=== PATIENT | male | born 1960 | race Caucasian/White ===

== ENCOUNTER 2016-10-14 02:25 | Emergency (ER) | payer OTHER ==
[~2016-10-14] VITALS: Ht 167.6 cm; Wt 100.0 kg
[~2016-10-14 02:25] MED LIST: AMLO5TAB2 PO; BENA20TA PO; CLON0.2T PO; CYAN50TA2 PO; DISU250T5 PO; GABA-502 PO; HYDR-3797 PO; MULT-1018 PO; POTA10CA42 PO; QUET50TA55 PO; THIA100T64 PO
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
[2016-10-14 02:54] VITALS: BP 160/94; PULSE 104; RESP 20; O2SAT 99
[2016-10-14 04:22] VITALS: BP 148/88; PULSE 100; RESP 16; O2SAT 99
[2016-10-14] MEDS ORDERED: Haloperidol 5 mg/mL Inj IM PRN (05:05)
[2016-10-14 09:02] VITALS: BP 137/75; PULSE 110; O2SAT 97
[2016-10-14] MEDS ORDERED: 0.9% Sodium Chloride 1,000 ML IV SCH (10:15)
[2016-10-14 11:07] VITALS: BP 134/67; PULSE 120; O2SAT 94
[2016-10-14 11:28] VITALS: BP 134/67; PULSE 120; RESP 16; O2SAT 94
== END 2016-10-14 11:30 | disposition home or self-care (01) ==
LOC: SED 02:25
DX: F31.9 Bipolar disorder, unspecified (principal); F10.120 Alcohol abuse with intoxication, uncomplicated; R45.851 Suicidal ideations; I10 Essential (primary) hypertension; Z88.1 Allergy status to other antibiotic agents
CPT/HCPCS: 82075; 96372; 99284; J1630; J2060

== ENCOUNTER 2016-12-21 10:49 | Emergency (ER) | payer OTHER ==
[~2016-12-21] VITALS: Ht 175.3 cm; Wt 88.2 kg
[2016-12-21 10:50] VITALS: BP 171/110; PULSE 122; RESP 14; O2SAT 100
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
[2016-12-21 12:42] VITALS: BP 138/67; PULSE 102; RESP 16; O2SAT 100
[2016-12-21 12:46] LABS: BASOPHILS % (AUTO) 0.7 % (0-3); EOSINOPHILS % (AUTO) 0.3 % (0-5); MONOCYTES % (AUTO) 4.6 % (4-12); Mean Corpuscular Hemoglobin 31.6 pg (27.0-35.0); Mean Corpuscular Volume 94.2 fL (81-100); NEUTROPHILS % (AUTO) 63.7 % (40-74); Platelet Count 190 bil/L (150-400)
[2016-12-22] MEDS ORDERED: LORA-303 PO (10:19)
== END 2016-12-21 12:40 | disposition home or self-care (01) ==
LOC: SED 10:49
DX: F10.120 Alcohol abuse with intoxication, uncomplicated (principal); F33.2 Major depressive disorder, recurrent severe without psychotic features; R45.851 Suicidal ideations; F31.9 Bipolar disorder, unspecified; I10 Essential (primary) hypertension; Z88.0 Allergy status to penicillin

== ENCOUNTER 2016-12-22 00:49 | Emergency (ER) | payer OTHER ==
[~2016-12-22] VITALS: Ht 167.6 cm; Wt 88.2 kg
[2016-12-22 00:53] VITALS: BP 160/101; PULSE 127; RESP 18; O2SAT 95
[2016-12-22] MEDS ORDERED: LORA-303 PO (10:19)
== END 2016-12-22 02:55 | disposition left against medical advice (07) ==
LOC: SED 00:49
DX: R45.851 Suicidal ideations (principal); F10.120 Alcohol abuse with intoxication, uncomplicated; Z53.21 Procedure and treatment not carried out due to patient leaving prior to being seen by health care provider

== ENCOUNTER 2016-12-22 06:26 | Emergency (ER) | payer OTHER ==
[~2016-12-22] VITALS: Ht 167.6 cm; Wt 8.6 kg
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
[2016-12-22] MEDS ORDERED: Pantoprazole 4 mg/mL 10 mL Inj IVPUSH ONE (06:40)
[2016-12-22] MEDS ORDERED: Ondansetron 2 mg/mL 2 mL Inj IVPUSH ONE (06:40)
[2016-12-22] MEDS ORDERED: Thiamine Inj 100 MG, Folic Acid Inj 1 MG, Magnesium Sulfate 50% Inj 2 GM, Multivitamins... IV ONE ×5 (06:40)
[2016-12-22 06:54] VITALS: BP 161/108; PULSE 110; RESP 16; O2SAT 97
[2016-12-22 08:10] LABS: BASOPHILS % (AUTO) 0.1 % (0-3); EOSINOPHILS % (AUTO) 0.1 % (0-5); MONOCYTES % (AUTO) 4.8 % (4-12); Mean Corpuscular Hemoglobin 31.2 pg (27.0-35.0); Mean Corpuscular Volume 93.1 fL (81-100); NEUTROPHILS % (AUTO) 78.1 % (40-74); Platelet Count 195 bil/L (150-400)
[2016-12-22 08:27] LABS: INR 1.03 ratio
[2016-12-22 08:40] LABS: TROPONIN T < 0.010 ug/L (0.0-0.011)
[2016-12-22 08:44] LABS: Phosphorus 3.3 mg/dL (2.5-4.9)
[2016-12-22 09:03] LABS: Lipase 22 U/L (13-60)
[2016-12-22] MEDS ORDERED: LidocaineVisc 2%:Antacid 1:1 10 mL Syringe PO ONE (10:15)
[2016-12-22] MEDS ORDERED: LORA-303 PO (10:19)
[2016-12-22 11:38] VITALS: BP 157/86; PULSE 114; RESP 18; O2SAT 95
== END 2016-12-22 11:41 | disposition home or self-care (01) ==
LOC: EDBD 06:26 → EDUNIT# 06:26 → SED 06:26
DX: F10.220 Alcohol dependence with intoxication, uncomplicated (principal); R07.89 Other chest pain; R74.0 Nonspecific elevation of levels of transaminase and lactic acid dehydrogenase [LDH]; I10 Essential (primary) hypertension; Z88.1 Allergy status to other antibiotic agents
CPT/HCPCS: 36415; 80053; 81002; 82075; 82607; 83690; 84100; 84484; 85025; 85610; 85730; 93005; 96365; 96366; 96375; 99285; G0480; J1885; J2060; J2405; J3475; J7030

== ENCOUNTER 2017-02-06 23:03 | Emergency (ER) | payer OTHER ==
[~2017-02-06] VITALS: Ht 157.5 cm; Wt 100.0 kg
[~2017-02-06 23:03] MED LIST changes: +LORA-303 PO
[2017-02-06 23:13] VITALS: BP 155/90; PULSE 70; RESP 18; O2SAT 98
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
[2017-02-07 02:48] VITALS: BP 141/87; PULSE 101; RESP 18; O2SAT 94
== END 2017-02-07 02:43 | disposition home or self-care (01) ==
LOC: SED 23:03
DX: F10.120 Alcohol abuse with intoxication, uncomplicated (principal); F43.21 Adjustment disorder with depressed mood; R45.851 Suicidal ideations; I10 Essential (primary) hypertension; F43.10 Post-traumatic stress disorder, unspecified; Z79.899 Other long term (current) drug therapy; Z88.1 Allergy status to other antibiotic agents

== ENCOUNTER 2017-02-10 08:10 | Inpatient (IN) | payer OTHER ==
[2017-02-10] VITALS (9 sets, daily range): BP systolic 136–154; BP diastolic 77–90; PULSE 104–120; RESP 16–18; O2SAT 90–95
[~2017-02-10] VITALS: Ht 157.5 cm; Wt 91.5 kg
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
--- NOTE | 2017-02-10 10:07 | DRSVH ---
PROCEDURE: X-RAY CHEST ONE VIEW, PORTABLE ([id number]) INDICATIONS: trauma TECHNIQUE: One view of the chest was acquired. COMPARISON: [facility], CR, XR CHEST 1VW (PORTABLE), 08/31/2016, 15:05. FINDINGS: Surgical changes and devices: None. Lungs and pleura: No pleural effusions or pneumothorax. Lungs are clear. Mild elevation of the rig ht sacrum similar to prior studies. Mediastinum: Mediastinal contours appear normal. Heart size is normal. There may be mild aortic at herosclerosis. Bones and chest wall: No suspicious bony lesions. Overlying soft tissues appear unremarkable. IMPRESSION: Negative chest. No acute cardiopulmonary process is evident. Dictated by: Wyatt Beaulieu M.D. on 02/10/2017 at 9:05 Approved by: Wyatt Beaulieu M.D. on 02/10/2017 at 9:05
[2017-02-10] MEDS ORDERED: 0.9% Sodium Chloride 1,000 ML IV ONE (14:46)
[2017-02-10] MEDS ORDERED: Thiamine Inj 100 MG, Folic Acid Inj 1 MG, Magnesium Sulfate 50% Inj 2 GM, Multivitamins... IV ONE ×10 (14:50→16:05)
[2017-02-10 15:13] LABS: BASOPHILS % (AUTO) 0.7 % (0-3); EOSINOPHILS % (AUTO) 0.3 % (0-5); MONOCYTES % (AUTO) 4.4 % (4-12); Mean Corpuscular Hemoglobin 30.8 pg (27.0-35.0); Mean Corpuscular Volume 90.5 fL (81-100); NEUTROPHILS % (AUTO) 65.7 % (40-74)
[2017-02-10 15:29] LABS: Platelet Count 78 bil/L (150-400)
[2017-02-10] MEDS ORDERED: KCl 40 mEq/D5W 500 mL 40 MEQ in IV Premix 1 EACH IV ONE (15:30)
--- NOTE | 2017-02-10 16:07 | PCM.HPMED ---
Subjective Date of Service February 10, 2017 Primary Provider: Admitting Physician: Primary Care Physician[facility] Attending Physician: Chief Complaint: Alcohol intoxication History of Present Illness: 57-year-old male with chronic alcohol abuse, multiple emergency visits in the past, history of ETOH withdrawal seizures, HTN, PTSD p/w suicidal ideation in intoxicated state. It's unclear how EMS was activated but it was reported that he had a plan to hang himself per EMS. pt stated that he is not drinking everyday, rather had binge drinking, for past 2days, he drank 1.5gallons of rum. stated that last drinks was Mar, however, from EMR, this already fifth visit to the hospital since 2017. pt visited either with suicidal ideation being intoxicated. pt didn't recall any incidence triggered him drink etoh. but stated that he is agoraphobic, had multiple suicidal attempt in the past, would like to attempt suicide if no one is around him. Since pt came to ED, noted to be intoxicated, CIWA13, VS [id number], [id number], 94- 95%on RA, pt received ativan 2mg, labs showed metabolic acidosis, hypokalemia, mild transaminitis, thrombocytopenia. Given intoxicated state, high CIWA, pt was admitted to [facility] for observation given persistent withdrawal symptoms>7hrs after initial visit. Review of Systems: Pertinent positives as noted in history of present illness. All other systems were reviewed and are negative Allergies Coded Allergies: ampicillin (Verified Allergy, Severe, 02/06/17) Home Medications cannot recall any name of meds 2medicine for sleep at night 1 med for BP vitB12 PMH per previous records PMH Hypertension Depression Bipolar PTSD Surgical History Patient has not had surgery Family History strong hx of alcoholism, Mother, father, sisters and brothers: Alcoholism. Social History Hx Alcohol Use: Yes (binge drinker) Hx Substance Use: No Hx Tobacco Use: 2cig per day for four years Social History Hx Alcohol Use: Yes (currently intoxicated) Hx Substance Use: No (Denies) Hx Tobacco Use: No Smoking Status: Never Smoker Exam Vital Signs Vital Sign - Last Date Time Temp Pulse Resp B/P Pulse Ox O2 Delivery O2 Flow Rate FiO2 02/10/17 15:16 111 16 142/79 92 Room Air 02/10/17 13:52 37.3 Exam Intoxicated middle-aged male, comfortably laying down on the bed gross tremors on extended arms at rest bilaterally no JVD, MMM, no LAD RRR, nl s1, s2 no mrg CTAB, no w,c. small bruises on anterior chest S,ND,NT,normoactive BS+, no hepatomegaly warm, no edema, pulses 2/2 Lab and Diagnostics Result Diagram: 02/10/17 1450 02/10/17 1450 X-Rays, CTs and MRIs PROCEDURE: X-RAY CHEST ONE VIEW, PORTABLE ([id number]) INDICATIONS: trauma TECHNIQUE: One view of the chest was acquired. COMPARISON: [facility], CR, XR CHEST 1VW (PORTABLE), 08/31/2016, 15 :05. FINDINGS: Surgical changes and devices: None. Lungs and pleura: No pleural effusions or pneumothorax. Lungs are clear. Mild elevation of the right sacrum similar to prior studies. Mediastinum: Mediastinal contours appear normal. Heart size is normal. There may be mild aortic atherosclerosis. Bones and chest wall: No suspicious bony lesions. Overlying soft tissues appear unremarkable. IMPRESSION: Negative chest. No acute cardiopulmonary process is evident. Dictated by: Wyatt Beaulieu M.D. on 02/10/2017 at 9:05 Approved by: Wyatt Beaulieu M.D. on 02/10/2017 at 9:05 Assessment & Plan 57-year-old male with chronic alcohol abuse, multiple emergency visits in the past, history of ETOH withdrawal seizures, HTN, PTSD p/w suicidal ideation in intoxicated state. acute, active etoh intoxication/WD, POA, recurrent episode, CIWA13, ETOH level 170s at 2: 40pm. -seizure, fall, DT precaution, frequent neurochecks, q1-2h, restraints if necessary -CIWA protocol, avoid long acting benzo for now -diet as tolerate -banana bag 1liter now, followed by MVI, folate, thiamine -tachycardia likely related to withdrawal, if pt becomes hyptensive as well, will consider librium to prevent DTs. suicidal ideation, POA, multiple ?attempt in the past, -keep 1:1 -appreciate SW input prior to d/c, consider psychiatric consult mild transaminitis, POA, will check viral hep panel, likely alcoholic hepatitis , thrombocytopenia, POA, likely BM suppression with etoh abuse, trend for now chronic, stable HTN, will resume home med Dispo: Patient is admitted under observation status with expectation that she will be discharged within 24-48 hours, diet:general dvt ppx:SCD Full Code Time spent 35min Trav Grande MD February 10, 2017 15:54
--- NOTE | 2017-02-10 17:56 | NUR ---
ADMIT Report received from Madeline Villalpando RN in ED. Pt brought up to unit at 1645 via gurney. Pt able to transfer to bed on foot but reports feeling weak and did not want to stand for weight. Admission interventions completed, MED rec to be followed up at later time. Pt oriented to unit, room, and call light. Plan on board, pt instructed on plan of care. Initial CIWA on floor is 12. Pt declines medication at this time and has fallen asleep. Suicide score is 21, staying with pt until sitter arrives. No harm contract printed out, pt said he is willing to sign. Seizure pads in place, fall risk sign up, pt resting/sleeping in bed.
[2017-02-10] MEDS: Ondansetron 2 mg/mL 2 mL Inj IVPUSH PRN (20:17)
--- NOTE | 2017-02-10 22:07 | NUR ---
Mentation Patient has been alert and oriented, conversational with staff. 1:1 companionship for active suicidal ideation. CIWA scores have been 12,11,16, two doses of Valium given so far this shift. CPOx in place and telemetry connected. Patient reports that he has done enough in his life and is ready for it to be over- active listening in place. Patient has currently fallen asleep after second Valium dose. Continual monitoring in place.
[2017-02-11] VITALS (8 sets, daily range): BP systolic 131–157; BP diastolic 77–94; PULSE 83–115; RESP 2–18; O2SAT 94–98
[2017-02-11] MEDS: Ondansetron 2 mg/mL 2 mL Inj IVPUSH PRN ×3 (00:11→21:42)
--- NOTE | 2017-02-11 01:07 | NUR ---
Transfer to [facility] Patient transferred to room 2026 at 0100, changing status to PCC. Patient's CIWA scores have been increasing with Diazepam being administered, last score was 23. Phone report given to Genesis Jasso RN, prior to transferring. 1:1 sitter will remain with patient. Vital signs stable at time of transfer. No personal belongings with admit.
--- NOTE | 2017-02-11 01:30 | NUR ---
Transfer to [facility] CIWA score is 3. The patient states that he feels overall "calm" and would "like to get some sleep" Oriented to call light. Tolerates ice chips. Sz pads in place. 1:1 sitter for suicide ideation. Pt does not voice any suicide thoughts at this time. WIll cont to monitor
[2017-02-11 04:11] LABS: BASOPHILS % (AUTO) 0.3 % (0-3); EOSINOPHILS % (AUTO) 0.8 % (0-5); MONOCYTES % (AUTO) 5.3 % (4-12); Mean Corpuscular Volume 90.3 fL (81-100); NEUTROPHILS % (AUTO) 67.5 % (40-74)
[2017-02-11 04:30] LABS: Magnesium 1.9 mg/dL (1.6-2.6); Phosphorus 1.8 mg/dL (2.5-4.9)
[2017-02-11 04:31] LABS: Platelet Count 60 bil/L (150-400)
[2017-02-11 08:10] LABS: Hepatitis A Antibody IgM Negative (Negative); Hepatitis B Core Antibody IgM Negative (Negative)
[2017-02-11] MEDS ORDERED: IBUP200C PO ×2 (10:22→10:38)
[2017-02-11] MEDS ORDERED: POTA10TA38 PO ×2 (10:22→10:38)
[2017-02-11] MEDS: Thiamine Inj 100 MG in Dextrose 5% 50 ML IV SCH (10:34)
[2017-02-11] MEDS ORDERED: LORA1TAB PO (10:38)
[2017-02-11] MEDS ORDERED: HYDR-656 PO (10:38)
[2017-02-11] MEDS ORDERED: CLON0.2T PO (10:38)
[2017-02-11] MEDS ORDERED: AMLO5TAB2 PO (10:38)
[2017-02-11] MEDS ORDERED: MULT1CAP33 PO (10:38)
[2017-02-11] MEDS ORDERED: THIA100T64 PO (10:38)
[2017-02-11] MEDS ORDERED: DISU250T5 PO (10:38)
[2017-02-11] MEDS ORDERED: BENA20TA PO (10:38)
[2017-02-11] MEDS ORDERED: CYAN50TA2 PO (10:38)
--- NOTE | 2017-02-11 10:58 | NUR ---
Social Work Note: Screen Note Data& Assessment: EMR reviewed. Miguel Coelho is a 57 year old male admitted on 02/10/2017 for alcohol withdrawal. Pt has [employer] insurance coverage and goes to the [facility] for primary care. Pt has 1:1 sitter at this time due to suicidal statements made when pt was in the ED. Pt CIWA this morning was 10. SW to follow up with pt regarding CD assessment and assess for safety. KATHI received phone call from Curve Saw Operator Alice from [facility] , she follows pt in the community. Alice informed SW that pt is open with outpt mental health and CD services through the [place]. Pt has upcoming appointments including group sessions for an addiction group and a coping skills group. Pt next group session is scheduled for Thursday02/16/2017 at 10:00am and Thursday02/17/2017 at 11:00am. Alice explained pt attends these sessions consistently. Pt has no showed to multiple individual counseling sessions, but Alice is able to help pt reconnect with individual sessions if he chooses to reengage with those services. KATHI Jenkins ([phone]) from the [place] would like to be updated on pt status and on his final DC plan. SW to continue to follow. Plan: SW to follow up with pt regarding CD assessment and assess for safety. Pt to update pt [place] KATHI Jenkins ([phone]) on pt status and on his final DC plan.Pt next group session is scheduled for Thursday02/16/2017 at 10:00am and Thursday02/17/2017 at 11:00am. SW to continue to follow. MAYELIN Stuart
--- NOTE | 2017-02-11 13:33 | PCM.PNMED ---
Subjective Date of Service February 11, 2017 Subjective Mr Coelho states he is feeling better than yesterday, but still very weak and aching all over. He states he stays sober for around 60 days, going to AA meetings, therapy at the [facility], going to orth[facility], and then his frustrations with his exwife not allowing him to see his daughter tend to overwhelm him and he plans to drink again to still the pain and anxiety. Exam Vital Signs Vital Sign - Last Date Time Temp Pulse Resp B/P Pulse Ox O2 Delivery O2 Flow Rate FiO2 02/11/17 12:15 37.0 105 16 141/84 96 Nasal Cannula 2.00 Intake and Output 02/10/17 02/10/17 02/11/17 Cumulative From/Thru 15:00 23:00 07:00 02/10/17 15:58 - 02/11/17 05:54 Intake Total 2250 ml 1500 ml 3750 ml Output Total 2225 ml 2225 ml Balance 2250 ml -725 ml 1525 ml Intake Oral 1500 ml 1500 ml IV Total 2250 ml 2250 ml Output Urine Total 1925 ml 1925 ml Emesis 300 ml 300 ml Exam General: Alert, Oriented X3, Cooperative, No Acute Distress Head: Normocephalic, atraumatic. External ears normal. Eyes: PERRLA, EOMI. Anicteric sclerae. Mouth: Mouth Normal, Mucous Membranes Moist/[place] Neck: Neck supple with full range of motion. Chest & Lungs: Clear to auscultation bilaterally with no crackles, wheezes, or rhonchi. Cardiovascular: Regular Rate/Rhythm, Normal S1, Normal S2, No Murmurs/Rubs/ Gallops Abdomen: Non-tender, Non-distended, No masses, Normoactive bowel tones, Soft Musculoskeletal: Normal Range of Motion Extremities: No cyanosis/clubbing/edema bilaterally Neurological: Grossly Neurologically Intact, Cranial Nerves 2-12 Intact, Normal Speech IVs and Medications IV Fluids Banana Bag 102mls/hr IV Medications Reviewed: Medications were reviewed in detail Lab and Diagnostics Result Diagram: 02/11/17 0400 02/11/17 0400 X-Rays, CTs and MRIs PROCEDURE: X-RAY CHEST ONE VIEW, PORTABLE ([id number]) INDICATIONS: trauma TECHNIQUE: One view of the chest was acquired. COMPARISON: [facility], CR, XR CHEST 1VW (PORTABLE), 08/31/2016, 15 :05. FINDINGS: Surgical changes and devices: None. Lungs and pleura: No pleural effusions or pneumothorax. Lungs are clear. Mild elevation of the right sacrum similar to prior studies. Mediastinum: Mediastinal contours appear normal. Heart size is normal. There may be mild aortic atherosclerosis. Bones and chest wall: No suspicious bony lesions. Overlying soft tissues appear unremarkable. IMPRESSION: Negative chest. No acute cardiopulmonary process is evident. Dictated by: Wyatt Beaulieu M.D. on 02/10/2017 at 9:05 Approved by: Wyatt Beaulieu M.D. on 02/10/2017 at 9:05 Assessment & Plan 57-year-old male with chronic alcohol abuse, multiple emergency visits in the past, history of ETOH withdrawal seizures, HTN, PTSD p/w suicidal ideation in intoxicated state. acute, active 1. EtOH intoxication/WD, POA, recurrent episode, CIWA10 this morning, 23 highest overnight, -seizure, fall, DT precaution, frequent neurochecks, q1-2h, restraints if necessary -CIWA protocol, valium on board now -diet as tolerate -banana bag 1liter now, followed by MVI, folate, thiamine -tachycardia likely related to withdrawal, if pt becomes hyptensive as well, will consider librium to prevent DTs. - CBC and CMP in morning 2. suicidal ideation, POA, has attempted in the past, -keep 1:1 -appreciate SW input prior to d/c, consider psychiatric consult 3. mild transaminitis, POA, will check viral hep panel, likely alcoholic hepatitis, 4. thrombocytopenia, POA, likely BM suppression with etoh abuse, trend for now 5. Hypokalemia, POA, likely secondary to vomiting with intoxication by EtOH - K/Mg replacement protocol chronic, stable HTN, will resume home med Dispo: Patient is now admitted under inpatient status with expectation of length of stay greater than two midnights, diet:general dvt ppx:SCD Full Code Pain Evaluation: Adequate Pain Control VTE Prophylaxis: Other (thrombocytopenic patient) Resuscitation Status: CPR: Attempt Resuscitation Attending Statement The patient was seen and examined together with Dr. Nash on 02/11/2017 and I agree with the history, exam and plan as outlined in the note above. . Omkar Nash DO February 11, 2017 13:33 Jack Lee MD February 12, 2017 07:34
[2017-02-11] MEDS: KCl 40 mEq/D5W 500 mL 40 MEQ in IV Premix 1 EACH IV ONE ×2 (14:42→14:50)
[2017-02-11] MEDS ORDERED: Potassium Chloride 20 mEq SR Tablet PO ONE (14:50)
--- NOTE | 2017-02-11 15:31 | NUR ---
spiritual care: pt request visit attempt; pt did not rouse to voice. will follow
--- NOTE | 2017-02-11 19:12 | NUR ---
CIWA/suicidal ideation Pt CIWA scores 4-10 through the day. High HR resolved after two 5mg dose of Valium. Pt suicidal score was 13, pt stating not having any plan on hurting himself while in hospital and agreed to sign a no harms contract. Q30min rounds done for pt safety. Pt resting calmly in bed through most of the day. Report given to oncoming RN
[2017-02-11] MEDS ORDERED: Potassium Chloride Oral 20 mEq SR Tab(K 3 - 3.7 & Creat < 2) PO ONE (21:35)
[2017-02-11] MEDS ORDERED: LORazepam 1 mg Tablet PO ONE (23:55)
[2017-02-12 02:39] LABS: Mean Corpuscular Hemoglobin 30.2 pg (27.0-35.0); Mean Corpuscular Volume 88.5 fL (81-100)
[2017-02-12 03:20] VITALS: BP 155/90; PULSE 97; RESP 18; O2SAT 97
[2017-02-12] MEDS ORDERED: Potassium Chloride Oral 20 mEq SR Tab(K 3 - 3.7 & Creat < 2) PO ONE (05:20)
--- NOTE | 2017-02-12 05:26 | NUR ---
CIWA/ K CIWA score low overnight. Pt a/ox3, compliant with care. PRN Tylenol given x1 for generalized body discomfort. Pt at one point did become slightly diaphoretic and restless, however was refusing IV Valium as it caused awful burning sensation when given on day shift. Discussed with Dr. Hayley MCNULTY ordered 1x dose 1mg PO Ativan, med given with good results- pt sleeping comfortable. Pt denies any current suicidal ideation. no harm contract signed. 1999 k 3.3, 40 meq PO given per protocol. rechecked this am 3.5- additional 40 meq ordered.
[2017-02-12 06:27] VITALS: PULSE 100
[2017-02-12 08:00] VITALS: PULSE 100
[2017-02-12 08:20] VITALS: BP 149/93; PULSE 105; RESP 18; O2SAT 92
[2017-02-12] MEDS: Thiamine Inj 100 MG in Dextrose 5% 50 ML IV SCH (08:30)
[2017-02-12 12:05] VITALS: BP 120/85; PULSE 100; RESP 16; O2SAT 92
--- NOTE | 2017-02-12 12:17 | PCM.DIMED ---
SaadOmkar Kwasi SARMIENTO 02/12/17 1216: Discharge Instructions Date of Service February 12, 2017 Dates of Hospitalization February 10, 2017 at 16:23 Discharge Diagnosis Discharge Diagnosis Alcohol dependence, alcohol withdrawal, thrombocytopenia secondary to alcohol dependence Medication Instructions Chlordiazepoxide 25 mg by mouth 3 times a day when necessary for withdrawal symptoms Disulfiram by mouth every morning Continue other home medications as before hospitalization Test Results Laboratory Tests Test 02/11/17 20:06 02/12/17 02:25 02/12/17 10:15 Potassium Level 3.3mEq/L (3.5-5.2) 3.5mEq/L (3.5-5.2) 3.6mEq/L (3.5-5.2) White Blood Count 4.4th/mm3 (3.8-10.1) Red Blood Count 3.81mil/mm3 (4.40-5.80) Hemoglobin 11.5g/dL (13.8-17.2) Hematocrit 33.7% (41.0-50.0) Mean Corpuscular Volume 88.5fL (81-100) Mean Corpuscular Hemoglobin 30.2pg (27.0-35.0) Mean Corpuscular Hemoglobin Concent 34.1% (32.0-37.0) Red Cell Distribution Width 13.0% (12.3-15.4) Platelet Count 57bil/L (150-400) Sodium Level 131mEq/L (134-144) Chloride Level 92mEq/L (97-108) Carbon Dioxide Level 23mmol/L (18-29) Blood Urea Nitrogen 5mg/dL (6-24) Creatinine 0.48mg/dL (0.76-1.27) Estimat Glomerular Filtration Rate 191mL/min (>59) Glucose Level 150mg/dL (60-99) Calcium Level 8.6mg/dL (8.5-10.1) Total Bilirubin 1.1mg/dL (0.0-1.2) Aspartate Amino Transf (AST/SGOT) 107U/L (0-50) Alanine Aminotransferase (ALT/SGPT) 38U/L (0-44) Alkaline Phosphatase 105U/L (25-150) Total Protein 6.4g/dL (6.4-8.4) Albumin 3.9g/dL (3.4-5.0) Diet Heart Healthy Activity No restrictions Call your provider Fever or Chills, Shortness of breath, Bleeding, Chest pain, Vomitting, Excessive diarrhea, Weakness (unilateral) Patient Instructions Take chlordiazepoxide 525 mg 3 times a day as needed for withdrawal symptoms Take disulfiram every morning to support daily sobriety Make the most of your excellent recovery support community! Follow-up plan [place] for prescriptions [facility] Provider[facility] Follow-up with PCP in: 1 week Jack Lee MD 02/12/17 1909: Discharge Instructions Attending's Statement The patient was seen and examined together with Dr. Nash on 02/12/2017 and I agree with the history, exam and plan as outlined in the note above. . Omkar Nash DO February 12, 2017 12:16 Jack Lee MD February 12, 2017 19:09
[2017-02-12] MEDS ORDERED: DISU250T5 PO (12:19)
[2017-02-12] MEDS ORDERED: CHLO25CA10 PO (12:19)
--- NOTE | 2017-02-12 13:34 | NUR ---
Social Work: Attempted MH Assessment/Discharge D: Pt discussed in am rounds with MD team. THERAPEUTIC ACTIVITIES SERVICES WORKER identified the need for a Mental Health evaluation, per H&P and MD progress notes. THERAPEUTIC ACTIVITIES SERVICES WORKER requested notification once pt was medically cleared so that eval could be completed. THERAPEUTIC ACTIVITIES SERVICES WORKER attempted to complete assessment prior to pt's discharge however pt had already been released. THERAPEUTIC ACTIVITIES SERVICES WORKER staffed pt's case with hospitalist Dr. Lee, who stated to THERAPEUTIC ACTIVITIES SERVICES WORKER that he had no concerns about pt's suicidal ideation and that he cleared the pt for discharge as he is well connected with resources in the community. Prior to discharge Pt requested from MD [facility] MD explained that his meds would likely be mailed to him and not available right away. pt confirms that he has this medication at home from a previous prescription that he can take until these arrive. MD provided THERAPEUTIC ACTIVITIES SERVICES WORKER/ACCOUNTING ASSISTANT with these scripts to be faxed. A: Pt who is I at baseline; MD identified need for social work intervention no longer necessary and pt's cleared by MD team for suicidal ideation. P: Pt who discharged home with outpatient followup for MH and CD counseling. Em Fry THERAPEUTIC ACTIVITIES SERVICES WORKER
--- NOTE | 2017-02-12 14:24 | NUR ---
[facility] and [facility]. Faxed to [place] [phone] ATTN: Team XAVI. Updated FIRST AID ATTENDANT
--- NOTE | 2017-02-12 15:16 | NUR ---
Discharge of patient Reviewed discharge instructions with patient. Patient verbalized understanding. Pt discharged via wheelchair, pt forgot instructions. Instructions will be sent to patient's home by [facility]. [facility] IV and telemetry previously discontinued. Pt left hospital by cab to home self care.
--- NOTE | 2017-02-12 18:12 | PCM.DC.MED ---
Discharge Summary Date of Service February 12, 2017 Dates of Hospitalization Date of Hospital Admission February 10, 2017 at 16:23 Date of Discharge: February 12, 2017 Providers: Admitting Physician: Trav Grande MD Primary Care Physician: [facility] Attending Physician: Trav Grande MD Diagnosis at Time of Discharge Diagnosis at Time of Discharge Alcohol dependence, alcohol withdrawal, thrombocytopenia secondary to alcohol dependence Procedures XRay, CTs & MRIs PROCEDURE: X-RAY CHEST IMPRESSION: Negative chest. No acute cardiopulmonary process is evident. ECG 12 Lead NSR rate of 98 Brief History 57-year-old male with chronic alcohol abuse, multiple emergency visits in the past, history of ETOH withdrawal seizures, HTN, PTSD p/w suicidal ideation in intoxicated state. It's unclear how EMS was activated but it was reported that he had a plan to hang himself per EMS. pt stated that he is not drinking everyday, rather had binge drinking, for past 2days, he drank 1.5gallons of rum. stated that last drinks was Mar, however, from EMR, this already fifth visit to the hospital since 2016. pt visited either with suicidal ideation being intoxicated. pt didn't recall any incidence triggered him drink etoh. but stated that he is agoraphobic, had multiple suicidal attempt in the past, would like to attempt suicide if no one is around him. Since pt came to ED, noted to be intoxicated, CIWA13, VS [id number], [id number], 94- 95%on RA, pt received ativan 2mg, labs showed metabolic acidosis, hypokalemia, mild transaminitis, thrombocytopenia. Given intoxicated state, high CIWA, pt was admitted to [facility] for observation given persistent withdrawal symptoms>7hrs after initial visit. Hospital Course 57-year-old male with chronic alcohol dependence, multiple emergency visits in the past, history of alcohol withdrawal seizures, hypertension, posttraumatic stress disorder p/w suicidal ideation in intoxicated state on admission. 1. Alcohol intoxication and withdrawal, present on admission. Recurrent episode , - CIWA10 this morning, 23 highest overnight the first night -seizure, fall, DT precaution, frequent neurochecks, q1-2h, restraints if necessary -CIWA protocol, valium and Ativan per protocol on board now -diet as tolerated -banana bag 2liter total, followed by MVI, folate, thiamine -tachycardia likely related to withdrawal, resolved with benzodiazepines - CBC and CMP daily 2. suicidal ideation, present on admission. Resolved -Once sober and further into with draw the patient denies any suicidal ideation -Kept 1:1 surveillance 3. mild transaminitis, present on admission. stable -Hepatitis viral panel negative 4. thrombocytopenia, present on admission. Stable -likely BM suppression with alcohol abuse 5. Hypokalemia, present on admission. Resolved -likely secondary to vomiting with intoxication by alcohol - K/Mg replacement protocol chronic, stable HTN, will resume home med Dispo: Patient was admitted under inpatient status with expectation of length of stay greater than two midnights, diet:general dvt ppx:SCD Full Code Exam Vital Signs (Last) Date Time Temp Pulse Resp B/P Pulse Ox O2 Delivery O2 Flow Rate FiO2 02/12/17 12:05 37.2 100 16 120/85 92 Room Air 02/12/17 03:20 2.00 Exam General: Alert, Oriented X3, Cooperative, No Acute Distress Head: Normocephalic, atraumatic. External ears normal. Eyes: PERRLA, EOMI. Anicteric sclerae. Mouth: Mouth Normal, Mucous Membranes Moist/[place] Neck: Neck supple with full range of motion. Chest & Lungs: Clear to auscultation bilaterally with no crackles, wheezes, or rhonchi. Cardiovascular: Regular Rate/Rhythm, Normal S1, Normal S2, No Murmurs/Rubs/ Gallops Abdomen: Non-tender, Non-distended, No masses, Normoactive bowel tones, Soft Musculoskeletal: Normal Range of Motion Extremities: No cyanosis/clubbing/edema bilaterally Neurological: Grossly Neurologically Intact, Cranial Nerves 2-12 Intact, Normal Speech Skin: Extensive bruising on patient's back and upper lateral arms Test 02/10/17 11:35 02/10/17 14:50 02/10/17 16:30 02/11/17 04:00 Urine Opiates Screen Negative Urine Methadone Screen Negative Urine Barbiturates Screen Negative Urine Amphetamines Screen Negative Urine Benzodiazepines Screen Negative Urine Cocaine Metabolite Screen Negative Urine Cannabinoids Screen Negative Hold Mera Top Tube Received (Received) Alcohols 272mg/dL (0-10) Hepatitis A IgM Antibody Negative (Negative) Hepatitis B Surface Antigen Negative (Negative) Hepatitis B Core IgM Antibody Negative (Negative) Hepatitis C Antibody <0.1s/co ratio (0.0-0.9) Hepatitis C Comment Comment (.) Neutrophils (%) (Auto) 67.5% (40-74) Lymphocytes (%) (Auto) 25.8% (14-46) Monocytes (%) (Auto) 5.3% (4-12) Eosinophils (%) (Auto) 0.8% (0-5) Basophils (%) (Auto) 0.3% (0-3) Phosphorus Level 1.8mg/dL (2.5-4.9) Magnesium Level 1.9mg/dL (1.6-2.6) Test 02/11/17 04:15 02/12/17 02:25 02/12/17 10:15 Hold Urine Received (Received) White Blood Count 4.4th/mm3 (3.8-10.1) Red Blood Count 3.81mil/mm3 (4.40-5.80) Hemoglobin 11.5g/dL (13.8-17.2) Hematocrit 33.7% (41.0-50.0) Mean Corpuscular Volume 88.5fL (81-100) Mean Corpuscular Hemoglobin 30.2pg (27.0-35.0) Mean Corpuscular Hemoglobin Concent 34.1% (32.0-37.0) Red Cell Distribution Width 13.0% (12.3-15.4) Platelet Count 57bil/L (150-400) Sodium Level 131mEq/L (134-144) Chloride Level 92mEq/L (97-108) Carbon Dioxide Level 23mmol/L (18-29) Blood Urea Nitrogen 5mg/dL (6-24) Creatinine 0.48mg/dL (0.76-1.27) Estimat Glomerular Filtration Rate 191mL/min (>59) Glucose Level 150mg/dL (60-99) Calcium Level 8.6mg/dL (8.5-10.1) Total Bilirubin 1.1mg/dL (0.0-1.2) Aspartate Amino Transf (AST/SGOT) 107U/L (0-50) Alanine Aminotransferase (ALT/SGPT) 38U/L (0-44) Alkaline Phosphatase 105U/L (25-150) Total Protein 6.4g/dL (6.4-8.4) Albumin 3.9g/dL (3.4-5.0) Potassium Level 3.6mEq/L (3.5-5.2) Discharge Medications Discharge Medications Amlodipine (Amlodipine) 5 Mg Tablet 5 MG PO DAILY (Reported) Benazepril (Benazepril) 20 Mg Tablet 20 MG PO DAILY (Reported) Clonidine (Clonidine) 0.2 Mg Tablet 0.2 MG PO HS (Reported) Cyanocobalamin (Vitamin B-12) (Vitamin B-12) 50 Mcg Tablet 50 MCG PO DAILY ( Reported) Disulfiram (Disulfiram) 250 Mg Tablet 250 MG PO DAILY Prescribed by: OMKAR NASH DO Multivitamin (Multivitamins) 1 Each Capsule 1 EACH PO DAILY (Reported) Potassium Chloride (Potassium Chloride) 10 Meq Tab.er.prt 10 MEQ PO HS (Reported ) TAKE WITH FOOD Thiamine Mononitrate (Vitamin B-1) 100 Mg Tablet 100 MG PO DAILY (Reported) As needed Chlordiazepoxide (Chlordiazepoxide) 25 Mg Capsule 25 MG PO TID PRN PRN For Anxiety Prescribed by: OMKAR NASH DO Ibuprofen (Ibuprofen) 200 Mg Capsule 400 MG PO BID PRN PRN For Pain (Reported) Lorazepam (Lorazepam) 1 Mg Tablet 1 MG PO TID PRN PRN For Anxiety (Reported) hydrOXYzine Hcl (HydrOXYzine Hcl) 25 Mg Tablet 25 MG PO BID PRN PRN Insomnia ( Reported) Additional med instructions Chlordiazepoxide 25 mg by mouth 3 times a day when necessary for withdrawal symptoms Disulfiram by mouth every morning Continue other home medications as before hospitalization Followup Plan Disposition: Home Follow-up plan [place] for prescriptions. Patient to continue with recovery program and therapy. Discharge Diet: Heart Healthy Discharge Activity: No restrictions Patient Instructions Take chlordiazepoxide 525 mg 3 times a day as needed for withdrawal symptoms Take disulfiram every morning to support daily sobriety Make the most of your excellent recovery support community! [facility] Follow-up with PCP in: 1 week Time spent Greater than 30 minutes was spent in preparation of discharge with greater than 50% of that time dedicated to patient counseling and coordination of care. . Attending Statement The patient was seen and examined together with Dr. Nash on 02/12/2017 and I agree with the history, exam and plan as outlined in the note above. . [facility] Omkar Nash DO February 12, 2017 18:12 Jack Lee MD February 12, 2017 19:10
== END 2017-02-12 13:30 | disposition home or self-care (01) | DRG 897 ==
LOC: SED 08:10 → MPC 16:23 → PCC 02-11 01:01
PROVIDERS: ADMIT Internal Medicine; ATTEND Internal Medicine
DX: F10.229 Alcohol dependence with intoxication, unspecified (principal); R45.851 Suicidal ideations; E87.2 Acidosis; F10.239 Alcohol dependence with withdrawal, unspecified; Y90.8 Blood alcohol level of 240 mg/100 ml or more; F17.200 Nicotine dependence, unspecified, uncomplicated; F31.9 Bipolar disorder, unspecified; I10 Essential (primary) hypertension; F43.10 Post-traumatic stress disorder, unspecified; E87.6 Hypokalemia; D69.6 Thrombocytopenia, unspecified

== ENCOUNTER 2017-03-05 17:24 | Emergency (ER) | payer OTHER ==
[~2017-03-05] VITALS: Ht 162.6 cm; Wt 69.0 kg
[~2017-03-05 17:24] MED LIST changes: +CHLO25CA10 PO; -GABA-502 PO; -HYDR-3797 PO; +HYDR-656 PO; +IBUP200C PO; -LORA-303 PO; +LORA1TAB PO; -MULT-1018 PO; +MULT1CAP33 PO; -POTA10CA42 PO; +POTA10TA38 PO; -QUET50TA55 PO
[2017-03-05 17:33] VITALS: BP 141/94; PULSE 120; RESP 16; O2SAT 95
[2017-03-05] MEDS ORDERED: Ondansetron 8 mg ODT Tablet ONE (17:39)
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
[2017-03-05] MEDS ORDERED: Multivitamin w/Vit K Inj 10 ML, Thiamine Inj 100 MG, Folic Acid Inj 1 MG, Magnesium Sul... IV ONE ×5 (17:49)
[2017-03-05 18:53] LABS: BASOPHILS % (AUTO) 1.8 % (0-3); EOSINOPHILS % (AUTO) 1.5 % (0-5); MONOCYTES % (AUTO) 4.6 % (4-12); Mean Corpuscular Volume 86.6 fL (81-100); NEUTROPHILS % (AUTO) 28.7 % (40-74); Platelet Count 246 bil/L (150-400)
[2017-03-05] MEDS ORDERED: Haloperidol 5 mg/mL Inj IVPUSH ONE ×2 (18:55→23:55)
[2017-03-05 19:17] LABS: INR 1.03 ratio
[2017-03-05 19:52] VITALS: BP 119/73; PULSE 114; RESP 20; O2SAT 96
[2017-03-05 21:41] VITALS: BP 139/75; PULSE 110; RESP 16; O2SAT 96
[2017-03-06 00:34] VITALS: BP 122/85; PULSE 97; RESP 16; O2SAT 98
[2017-03-06 01:26] VITALS: BP 121/69; PULSE 101; RESP 16; O2SAT 97
== END 2017-03-06 05:34 | disposition home or self-care (01) ==
LOC: SED 17:24
DX: F10.220 Alcohol dependence with intoxication, uncomplicated (principal); R45.851 Suicidal ideations; F41.9 Anxiety disorder, unspecified; Y90.8 Blood alcohol level of 240 mg/100 ml or more; F43.10 Post-traumatic stress disorder, unspecified; I10 Essential (primary) hypertension; F31.9 Bipolar disorder, unspecified; D69.6 Thrombocytopenia, unspecified; D70.9 Neutropenia, unspecified; Z91.5 Personal history of self-harm; Z88.0 Allergy status to penicillin
CPT/HCPCS: 36415; 80053; 81002; 82075; 82607; 83735; 84443; 85025; 85610; 96365; 96366; 96375; 96376; 99285; G0480; J1630; J2060; J3475; J7030

== ENCOUNTER 2017-03-06 15:51 | Emergency (ER) | payer OTHER ==
[~2017-03-06] VITALS: Ht 167.6 cm; Wt 86.4 kg
[2017-03-06 16:10] VITALS: BP 144/88; PULSE 123; RESP 16; O2SAT 98
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
[2017-03-06] MEDS ORDERED: LORazepam 1 mg Tablet PO ONE ×2 (17:35→19:40)
[2017-03-06 20:13] VITALS: BP 141/87; PULSE 108; RESP 18; O2SAT 93
[2017-03-06 22:51] VITALS: BP 151/99; PULSE 103; RESP 18; O2SAT 95
== END 2017-03-06 22:52 | disposition home or self-care (01) ==
LOC: SED 15:51
DX: F10.120 Alcohol abuse with intoxication, uncomplicated (principal); R45.851 Suicidal ideations; F31.9 Bipolar disorder, unspecified; I10 Essential (primary) hypertension; Z88.1 Allergy status to other antibiotic agents

== ENCOUNTER 2017-04-23 04:41 | Emergency (ER) | payer OTHER ==
[~2017-04-23] VITALS: Ht 167.6 cm; Wt 81.8 kg
[2017-04-23 04:43] VITALS: BP 152/99; PULSE 120; RESP 22; O2SAT 97
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
[2017-04-23] MEDS ORDERED: Thiamine Inj 100 MG, Folic Acid Inj 1 MG, Magnesium Sulfate 50% Inj 2 GM, Multivitamins... IV ONE ×5 (04:50)
[2017-04-23] MEDS ORDERED: Ondansetron 2 mg/mL 2 mL Inj IVPUSH ONE (04:50)
[2017-04-23] MEDS ORDERED: 0.9% Sodium Chloride 1,000 ML IV ONE (04:50)
[2017-04-23 05:08] LABS: Mean Corpuscular Hemoglobin 31.1 pg (27.0-35.0); Mean Corpuscular Volume 90.2 fL (81-100)
[2017-04-23] MEDS ORDERED: Famotidine Inj 20 MG in IV Premix 1 EACH IV ONE (05:30)
[2017-04-23] MEDS ORDERED: POTA10TA12 PO (05:50)
[2017-04-23] MEDS ORDERED: ONDA8TAB10 PO (05:50)
[2017-04-23] MEDS ORDERED: ProchlorPERazine 5 mg/mL 2 mL Inj IV ONE (06:15)
[2017-04-23 06:47] VITALS: BP 168/92; PULSE 102; RESP 18; O2SAT 98
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
[2017-04-23 07:59] VITALS: BP 166/79; PULSE 101; RESP 16; O2SAT 97
== END 2017-04-23 08:00 | disposition home or self-care (01) ==
LOC: SED 04:41
DX: F10.20 Alcohol dependence, uncomplicated (principal); F31.9 Bipolar disorder, unspecified; E87.6 Hypokalemia; R45.851 Suicidal ideations; R11.2 Nausea with vomiting, unspecified; I10 Essential (primary) hypertension; F41.8 Other specified anxiety disorders; Z88.1 Allergy status to other antibiotic agents
CPT/HCPCS: 36415; 70450; 80053; 81002; 82075; 82948; 83690; 85027; 96365; 96368; 96375; 99285; J0780; J2405; J3475; J3490; J7030

== ENCOUNTER 2017-06-01 21:40 | Emergency (ER) | payer OTHER ==
[~2017-06-01] VITALS: Ht 170.2 cm; Wt 82.7 kg
[~2017-06-01 21:40] MED LIST changes: +ONDA8TAB10 PO; +POTA10TA12 PO; -POTA10TA38 PO; +POTA20TA16 PO; +[UNRECOGNIZED DRUG - REMARK]
[2017-06-01 21:46] VITALS: BP 147/94; PULSE 114; RESP 22; O2SAT 97
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
[2017-06-01] MEDS ORDERED: Multivitamin w/Vit K Inj 10 ML, Thiamine Inj 100 MG, Folic Acid Inj 1 MG, Magnesium Sul... IV ONE ×5 (22:10)
[2017-06-01 22:43] LABS: BASOPHILS % (AUTO) 1.6 % (0-3); EOSINOPHILS % (AUTO) 0.3 % (0-5); MONOCYTES % (AUTO) 3.7 % (4-12); Mean Corpuscular Hemoglobin 32.1 pg (27.0-35.0); NEUTROPHILS % (AUTO) 34.1 % (40-74); Platelet Count 101 bil/L (150-400)
[2017-06-01 22:59] LABS: INR 1.06 ratio
[2017-06-01 23:19] LABS: Magnesium 1.8 mg/dL (1.6-2.6)
[2017-06-02 00:49] VITALS: BP 160/105; PULSE 115; RESP 20; O2SAT 100
[2017-06-02 02:00] VITALS: BP 160/111; PULSE 115; RESP 22; O2SAT 96
== END 2017-06-02 02:01 | disposition home or self-care (01) ==
LOC: EDBD 21:40 → SED 21:40
DX: F10.120 Alcohol abuse with intoxication, uncomplicated (principal); F43.21 Adjustment disorder with depressed mood; I10 Essential (primary) hypertension; F43.10 Post-traumatic stress disorder, unspecified; Z87.891 Personal history of nicotine dependence; Z88.0 Allergy status to penicillin
CPT/HCPCS: 36415; 80053; 82075; 83735; 84443; 85025; 85610; 96365; 96375; 99284; J2060; J3475; J7030

== ENCOUNTER 2017-06-04 22:56 | Emergency (ER) | payer OTHER ==
[2017-06-04 23:19] VITALS: BP 133/79; PULSE 110; RESP 20; O2SAT 97
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
[2017-06-05 00:11] VITALS: BP 141/77; PULSE 105; RESP 16; O2SAT 96
[2017-06-05 02:40] VITALS: BP 143/89; PULSE 102; RESP 19; O2SAT 94
[2017-06-05 06:57] VITALS: BP 140/89; PULSE 99; RESP 17; O2SAT 93
[2017-06-05 07:34] VITALS: PULSE 74; RESP 14; O2SAT 98
== END 2017-06-05 07:35 | disposition home or self-care (01) ==
LOC: SED 22:56
DX: S00.33XA Contusion of nose, initial encounter (principal); S20.219A Contusion of unspecified front wall of thorax, initial encounter; X58.XXXA Exposure to other specified factors, initial encounter; Y93.89 Activity, other specified; Y92.89 Other specified places as the place of occurrence of the external cause; Y99.8 Other external cause status; F10.129 Alcohol abuse with intoxication, unspecified; I10 Essential (primary) hypertension; F41.0 Panic disorder [episodic paroxysmal anxiety]; F41.8 Other specified anxiety disorders; F31.9 Bipolar disorder, unspecified; F43.10 Post-traumatic stress disorder, unspecified; Z96.641 Presence of right artificial hip joint; Z98.890 Other specified postprocedural states; Z87.891 Personal history of nicotine dependence; Z88.1 Allergy status to other antibiotic agents

== ENCOUNTER 2017-06-07 08:45 | Emergency (ER) | payer OTHER ==
[~2017-06-07] VITALS: Ht 167.6 cm; Wt 85.9 kg
[2017-06-07 08:53] VITALS: BP 139/97; PULSE 89; RESP 20; O2SAT 97
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
[2017-06-07] MEDS ORDERED: TdaP Vaccine 0.5 mL Inj IM ONE (09:25)
[2017-06-07] MEDS ORDERED: Lidocaine-Epi-Tetracaine Solution 3 mL Syringe TOPICAL ONE (09:40)
[2017-06-07] MEDS ORDERED: Bacitracin Ointment Packet TOPICAL ONE (09:40)
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
--- NOTE | 2017-06-07 10:51 | DRSVH ---
PROCEDURE: X-RAY LEFT HAND, MINIMUM THREE VIEWS ([id number]) INDICATIONS: pain TECHNIQUE: 3 views of the hand(s) acquired. COMPARISON: None. FINDINGS: Bones: No fractures or dislocations. Carpal bones are normally aligned. No suspicious bony lesions . Degenerative changes greatest in the first CMC joint present to a lesser extent in the interphalan geal joints. Osteopenia. Soft tissues: No suspicious soft tissue calcifications. IMPRESSION: No acute fractures or dislocations. Dictated by: Peyman Aparicio M.D. on 06/07/2017 at 10:48 Approved by: Peyman Aparicio M.D. on 06/07/2017 at 10:49
--- NOTE | 2017-06-07 10:52 | DRSVH ---
PROCEDURE: X-RAY RIGHT HAND, MINIMUM THREE VIEWS ([id number]) INDICATIONS: pain TECHNIQUE: 3 views of the hand(s) acquired. COMPARISON: None. FINDINGS: Bones: No fractures or dislocations. Carpal bones are normally aligned. Degenerative changes in mul tiple interphalangeal joints. No suspicious bony lesions. Mild osteopenia. Soft tissues: No suspicious soft tissue calcifications. IMPRESSION: No acute fractures or dislocations. Dictated by: Peyman Aparicio M.D. on 06/07/2017 at 10:49 Approved by: Peyman Aparicio M.D. on 06/07/2017 at 10:50
[2017-06-07 11:34] LABS: BASOPHILS % (AUTO) 0.5 % (0-3); EOSINOPHILS % (AUTO) 1.1 % (0-5); MONOCYTES % (AUTO) 4.2 % (4-12); Mean Corpuscular Hemoglobin 32.2 pg (27.0-35.0); Mean Corpuscular Volume 95.2 fL (81-100); NEUTROPHILS % (AUTO) 20.8 % (40-74); Platelet Count 98 bil/L (150-400)
--- NOTE | 2017-06-07 12:06 | DRSVH ---
PROCEDURE: X-RAY CHEST ONE VIEW, PORTABLE ([id number]) INDICATIONS: CP TECHNIQUE: One view of the chest was acquired. COMPARISON: [facility], CR, XR CHEST 1VW (PORTABLE), 02/10/2017, 9:38. [facility], CR, XR CHEST 1VW (PORTABLE), 08/31/2016, 15:05. [facility], CR, XR CHEST 1VW (POR TABLE), 05/08/2016, 3:33. [facility], CR, XR CHEST 1VW (PORTABLE), 08/05/2015, 7:53. FINDINGS: Surgical changes and devices: None. Lungs and pleura: No pleural effusions or pneumothorax. Lungs are clear. Mediastinum: Mediastinal contours appear normal. Heart size is normal. Bones and chest wall: No suspicious bony lesions. Overlying soft tissues appear unremarkable. IMPRESSION: No radiographic evidence of acute cardiopulmonary pathology. Dictated by: Peyman Aparicio M.D. on 06/07/2017 at 12:03 Approved by: Peyman Aparicio M.D. on 06/07/2017 at 12:04
[2017-06-07 12:09] LABS: TROPONIN T 0.01 ug/L (0.0-0.011)
[2017-06-07 14:54] VITALS: BP 144/97; PULSE 92; RESP 20
[2017-06-07] MEDS ORDERED: LORazepam 2 mg Tablet PO ONE ×2 (15:40→21:00)
[2017-06-07] MEDS ORDERED: _LORazepam 2 MG Tablet PO SCH (17:15)
[2017-06-07 20:56] VITALS: BP 148/90; PULSE 105; RESP 16; O2SAT 95
== END 2017-06-07 23:32 | disposition home or self-care (01) ==
LOC: EDUNIT# 08:45 → SED 08:45 → EDBD 08:45 → SED 23:32
DX: S00.83XA Contusion of other part of head, initial encounter (principal); F10.229 Alcohol dependence with intoxication, unspecified; M79.641 Pain in right hand; M79.642 Pain in left hand; Y04.0XXA Assault by unarmed brawl or fight, initial encounter; Y93.89 Activity, other specified; Y99.8 Other external cause status; Y92.9 Unspecified place or not applicable; I10 Essential (primary) hypertension; E78.5 Hyperlipidemia, unspecified; Z96.641 Presence of right artificial hip joint; Z23 Encounter for immunization; Z87.891 Personal history of nicotine dependence; Z88.0 Allergy status to penicillin

== ENCOUNTER 2017-06-09 07:27 | Emergency (ER) | payer OTHER ==
[~2017-06-09] VITALS: Ht 167.6 cm; Wt 82.7 kg
[2017-06-09 07:29] VITALS: BP 138/91; PULSE 87; RESP 18; O2SAT 95
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
[2017-06-09 08:11] LABS: BASOPHILS % (AUTO) 0.5 % (0-3); EOSINOPHILS % (AUTO) 1.1 % (0-5); MONOCYTES % (AUTO) 7.1 % (4-12); Mean Corpuscular Hemoglobin 32.8 pg (27.0-35.0); Mean Corpuscular Volume 94.3 fL (81-100); Platelet Count 69 bil/L (150-400)
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
[2017-06-09 11:45] LABS: APPEARANCE,URINE CLEAR (CLEAR,HAZY); COLOR,URINE YELLOW (YELLOW)
[2017-06-09 11:46] LABS: OCCULT BLOOD,URINE TRACE (NEGATIVE); UROBILINOGEN,URINE NORMAL (NORMAL)
[2017-06-09 13:32] VITALS: BP 137/91; PULSE 119; RESP 14; O2SAT 90
[2017-06-09 17:15] VITALS: BP 145/88; PULSE 92; RESP 18; O2SAT 94
[2017-06-09 17:47] VITALS: BP 145/88; PULSE 92; RESP 18; O2SAT 94
== END 2017-06-09 17:48 | disposition home or self-care (01) ==
LOC: SED 07:27
DX: S02.2XXA Fracture of nasal bones, initial encounter for closed fracture (principal); S02.80XA Fracture of other specified skull and facial bones, unspecified side, initial encounter for closed fracture; F10.129 Alcohol abuse with intoxication, unspecified; W19.XXXA Unspecified fall, initial encounter; Y93.89 Activity, other specified; Y92.009 Unspecified place in unspecified non-institutional (private) residence as the place of occurrence of the external cause; Y99.8 Other external cause status; I10 Essential (primary) hypertension; F43.10 Post-traumatic stress disorder, unspecified; Z87.891 Personal history of nicotine dependence

== ENCOUNTER 2017-06-12 04:24 | Emergency (ER) | payer OTHER ==
[~2017-06-12] VITALS: Ht 167.6 cm; Wt 82.7 kg
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
[2017-06-12 04:23] VITALS: BP 155/104; PULSE 107; RESP 16; O2SAT 93
[2017-06-12] MEDS ORDERED: IBUP400T22 PO (06:10)
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
== END 2017-06-12 06:15 | disposition home or self-care (01) ==
LOC: SED 04:24
DX: S02.2XXA Fracture of nasal bones, initial encounter for closed fracture (principal); S62.316A Displaced fracture of base of fifth metacarpal bone, right hand, initial encounter for closed fracture; F10.10 Alcohol abuse, uncomplicated; Y04.0XXA Assault by unarmed brawl or fight, initial encounter; Y93.9 Activity, unspecified; Y92.9 Unspecified place or not applicable; Y99.8 Other external cause status; I10 Essential (primary) hypertension; F43.10 Post-traumatic stress disorder, unspecified; Z87.891 Personal history of nicotine dependence; Z88.1 Allergy status to other antibiotic agents
CPT/HCPCS: 70450; 70486; 72125; 73130; 81002; 82075; 96372; 99284; J1885

== ENCOUNTER 2017-06-14 00:42 | Emergency (ER) | payer OTHER ==
[~2017-06-14] VITALS: Ht 167.6 cm; Wt 82.7 kg
[~2017-06-14 00:42] MED LIST changes: +IBUP400T22 PO
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
[2017-06-14 00:47] VITALS: BP 131/85; PULSE 98; RESP 18; O2SAT 95
[2017-06-14 01:19] LABS: Mean Corpuscular Hemoglobin 32.5 pg (27.0-35.0); Mean Corpuscular Volume 95.1 fL (81-100); Platelet Count 70 bil/L (150-400)
[2017-06-14 01:38] LABS: BASOPHILS % (AUTO) 2 % (0-3); EOSINOPHILS % (AUTO) 0 % (0-5); MONOCYTES % (AUTO) 1 % (4-12); NEUTROPHILS % (AUTO) 21 % (40-74)
[2017-06-14 04:03] VITALS: BP 142/88; PULSE 104; RESP 18; O2SAT 95
== END 2017-06-14 04:00 | disposition home or self-care (01) ==
LOC: SED 00:42
DX: F10.120 Alcohol abuse with intoxication, uncomplicated (principal); S62.611D Displaced fracture of proximal phalanx of left index finger, subsequent encounter for fracture with routine healing; Y04.0XXD Assault by unarmed brawl or fight, subsequent encounter; Y93.89 Activity, other specified; Y99.8 Other external cause status; Y92.9 Unspecified place or not applicable; I10 Essential (primary) hypertension; F41.9 Anxiety disorder, unspecified; F43.10 Post-traumatic stress disorder, unspecified; Z96.641 Presence of right artificial hip joint; Z91.5 Personal history of self-harm; Z88.0 Allergy status to penicillin
CPT/HCPCS: 36415; 80053; 85025; 96372; 99285; G0480; J1885

== ENCOUNTER 2017-06-17 10:02 | Emergency (ER) | payer OTHER ==
[~2017-06-17] VITALS: Ht 167.6 cm; Wt 82.7 kg
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
[2017-06-17 10:12] VITALS: BP 163/103; PULSE 105; RESP 20; O2SAT 92
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
[2017-06-17 11:45] VITALS: BP 128/83; PULSE 102; RESP 20; O2SAT 93
== END 2017-06-17 13:12 | disposition home or self-care (01) ==
LOC: EDBD 10:02 → SED 10:02
DX: S46.811A Strain of other muscles, fascia and tendons at shoulder and upper arm level, right arm, initial encounter (principal); F10.129 Alcohol abuse with intoxication, unspecified; Y04.0XXA Assault by unarmed brawl or fight, initial encounter; Y93.89 Activity, other specified; Y99.8 Other external cause status; Y92.89 Other specified places as the place of occurrence of the external cause; I10 Essential (primary) hypertension; F43.10 Post-traumatic stress disorder, unspecified; F41.9 Anxiety disorder, unspecified; Z87.891 Personal history of nicotine dependence; Z96.641 Presence of right artificial hip joint

== ENCOUNTER 2017-06-21 11:57 | Inpatient (IN) | payer OTHER ==
[2017-06-21] VITALS (7 sets, daily range): BP systolic 139–176; BP diastolic 82–97; PULSE 92–109; RESP 16–22; O2SAT 97–100
[~2017-06-21] VITALS: Ht 168.9 cm; Wt 84.8 kg
[2017-06-21 12:19] LABS: BASOPHILS % (AUTO) 0.2 % (0-3); EOSINOPHILS % (AUTO) 0.2 % (0-5); MONOCYTES % (AUTO) 11.5 % (4-12); Mean Corpuscular Hemoglobin 32.8 pg (27.0-35.0); Mean Corpuscular Volume 97.4 fL (81-100); NEUTROPHILS % (AUTO) 67.5 % (40-74); Platelet Count 70 bil/L (150-400)
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
[2017-06-21] MEDS ORDERED: HYDROmorphone 0.5 mg/0.5 mL iSecure Syringe IVPUSH ONE (12:30)
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
[2017-06-21 12:39] LABS: TROPONIN T 0.01 ug/L (0.0-0.011)
[2017-06-21 12:50] LABS: Magnesium 1.8 mg/dL (1.6-2.6)
--- NOTE | 2017-06-21 13:08 | DRSVH ---
PROCEDURE: X-RAY RIGHT HAND, MINIMUM THREE VIEWS ([id number]) INDICATIONS: Pain, TECHNIQUE: 3 views of the hand(s) acquired. COMPARISON: [facility], CR, XR HAND 3VW RT, 06/12/2017, 4:54. FINDINGS: Bones: No acute fractures or dislocations. There is an old and well healed fracture of the distal di aphysis of the fifth metacarpal. Carpal bones are normally aligned. No suspicious bony lesions. Soft tissues: No suspicious soft tissue calcifications. IMPRESSION: No acute bony abnormality is seen no changes to indicate a healing fracture either. Old healed fracture of the distal diaphysis of the neck of the fifth metacarpal. Dictated by: Dilan Mathur M.D. on 06/21/2017 at 13:04 Approved by: Dilan Mathur M.D. on 06/21/2017 at 13:06
--- NOTE | 2017-06-21 13:09 | DRSVH ---
PROCEDURE: X-RAY RIGHT SHOULDER, MINIMUM TWO VIEWS ([id number]) INDICATIONS: Pain, TECHNIQUE: 3 views of the shoulder were acquired. COMPARISON: [facility], CR, XR SHOULDER MIN 2VW RT, 06/17/2017, 10:28. FINDINGS: Bones: No fractures or dislocations. No suspicious bony lesions. Visualized ribs appear intact. Soft tissues: No suspicious soft tissue calcifications. IMPRESSION: Abnormality is appreciated in the 3 views of the right shoulder. Cause of persistent pain is not identified. Dictated by: Dilan Mathur M.D. on 06/21/2017 at 13:06 Approved by: Dilan Mathur M.D. on 06/21/2017 at 13:07
--- NOTE | 2017-06-21 13:09 | DRSVH ---
PROCEDURE: X-RAY RIGHT TIBIA/FIBULA, TWO VIEWS ([id number]) INDICATIONS: Pain, TECHNIQUE: 2 views of the tibia and fibula were acquired. COMPARISON: None. FINDINGS: Bones: No fractures or dislocations. No suspicious bony lesions. Soft tissues: No suspicious soft tissue calcifications or masses. IMPRESSION: No bony abnormality is identified in these 2 views of the right leg. Dictated by: Dilan Mathur M.D. on 06/21/2017 at 13:07 Approved by: Dilan Mathur M.D. on 06/21/2017 at 13:08
[2017-06-21] MEDS ORDERED: Dextrose 5% 0.9% NaCl 1,000 ML IV ONE ×2 (14:40→15:20)
--- NOTE | 2017-06-21 15:18 | ABG ---
pH ____7.165 - 7.320 7.420 pCO2 ___14.4__ -mmHg 41.0 51.0 pO2 ___60.2__ -mmHg 24.0 40.0 HCO3- ____5.0__ -mmol/L ABE __-22.7__ -mmol/L tHb ___12.7__ -g/dL 12.0 18.0 O2Hb ___83.0__ -% COHb ____2.9__ -% 0.0 1.5 MetHb ____1.2__ -% 0.4 1.5 sO2 ___86.5__ -% FIO2 ___21.0__ -% B 765 -mmHg tO2 ___14.8__ -Vol%
[2017-06-21] MEDS ORDERED: Ondansetron 2 mg/mL 2 mL Inj IVPUSH ONE ×2 (15:20→16:00)
[2017-06-21] MEDS ORDERED: HYDROmorphone 0.5 mg/0.5 mL iSecure Syringe IVPUSH PRN (15:20)
[2017-06-21] MEDS ORDERED: Ondansetron 2 mg/mL 2 mL Inj IVPUSH PRN (15:40)
[2017-06-21] MEDS ORDERED: Alum-Mag Hydrox-Simeth 30 mL Suspension PO PRN ×2 (15:40→15:50)
[2017-06-21] MEDS ORDERED: Polyethylene Glycol (PEG) 17 Gm Powder PO PRN (15:50)
[2017-06-21] MEDS ORDERED: Thiamine Inj 100 MG, Folic Acid Inj 1 MG, Magnesium Sulfate 50% Inj 2 GM, Multivitamins... IV ONE ×5 (15:50)
[2017-06-21] MEDS ORDERED: LORazepam 2 mg Tablet PO PRN (15:50)
[2017-06-21] MEDS ORDERED: Heparin 5,000 Unit/mL Inj SUBQ SCH (16:30)
[2017-06-21] MEDS: Thiamine Inj 100 MG in 0.9% Sodium Chloride 100 ML IV SCH (17:40)
[2017-06-21 17:51] LABS: INR 1.03 ratio
[2017-06-21 18:07] LABS: Magnesium 1.7 mg/dL (1.6-2.6); Phosphorus 1.1 mg/dL (2.5-4.9)
[2017-06-21] MEDS: Pantoprazole 40 mg ER24 Tablet PO SCH (18:25)
[2017-06-21] MEDS ORDERED: Lactulose 20 Gm/30 mL 30 mL Syrup PO ONE (18:30)
[2017-06-21] MEDS ORDERED: chlordiazePOXIDE 25 mg Capsule PO PRN (18:35)
--- NOTE | 2017-06-21 18:36 | NUR ---
Arrived 1638 - Received report from Kaye Olivarez in the ED 171 - He arrived from the ED to [facility] 2008 with ETOH and Alcoholic Ketoacidosis. Alert and oriented x3. States that he has baseline hallucinations regardless of whether he has been drinking or not, but denies them right now. Suicidal Risk Score 20 (has a lethal plan of shooting himself in the head with a gun, no access to the plan, thinks about suicide often at baseline, past lethal attempt to hang himself, states he will not attempt suicide in the hospital). CIWA (Alcohol Withdrawal) score of 8 (nausea/vomiting mostly). He had nausea and vomiting shortly after arrival. Dr. Ybarra was in the room and noted no blood in his vomit (had a bloody emesis in the ED per report). Gave him 4 mg of Zofran IV which resolved his nausea. States his pain is 3/10 and that 8/10 is a tolerable pain level. He is remaining on bedrest with seizure pads per MD orders. A clear liquid tray with no red dyes has been ordered. 1840 - He willingly signed the Non-Injury Contract for his suicidal ideation. He is resting comfortably in bed watching TV. Care continues.
--- NOTE | 2017-06-21 18:39 | PCM.ADCARE ---
Advance Care Planning Note Time Spent Adv.Care Planning: Date: 06/21/17 Diagnosis: Alcohol withdrawal Alcohol ketoacidosis PTSD with Hallucinations Hypertension Hyponatremia Purpose of encounter: Goals of care Parties in attendance: The patient, Dr. Castellanos, nurse (Oma), patient previously reported full CODE STATUS to Dr. Olemdo as well Decisional capacity: Good Plan: The patient is aware of the current diagnosis and would like to continue to be full code. The patient understands that this means for chest compressions , intubation, pressors, and all measures involved with CPR. CODE STATUS: Full code Time spent with advanced care planning: Greater than 16 minutes Sara Castellanos DO Jun 21, 2017 18:39
[2017-06-21] MEDS: Ondansetron 2 mg/mL 2 mL Inj IVPUSH PRN (19:34)
[2017-06-21] MEDS: Famotidine Inj 20 MG in IV Premix 1 EACH IV SCH (21:26)
--- NOTE | 2017-06-21 21:40 | NUR ---
Nausea/Vomiting/CIWA Pt has had 1,000cc emesis since shift start and unable to take PO medications at this time. MD was paged and notified. Pt's CIWA score is 16 and pt given 2mg Ativan. Pt's next CIWA score is 16 and pt given another 2mg Ativan.
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
[2017-06-22] VITALS (8 sets, daily range): BP systolic 103–144; BP diastolic 65–89; PULSE 92–108; RESP 16–22; O2SAT 96–98
[2017-06-22] MEDS: Ondansetron 2 mg/mL 2 mL Inj IVPUSH PRN (01:38)
[2017-06-22 03:35] LABS: BASOPHILS % (AUTO) 0.3 % (0-3); EOSINOPHILS % (AUTO) 0.6 % (0-5); MONOCYTES % (AUTO) 11.9 % (4-12); Mean Corpuscular Hemoglobin 32.9 pg (27.0-35.0); Mean Corpuscular Volume 95.9 fL (81-100); NEUTROPHILS % (AUTO) 69.2 % (40-74); Platelet Count 56 bil/L (150-400)
[2017-06-22 03:58] LABS: Lipase 128 U/L (13-60); Magnesium 2.2 mg/dL (1.6-2.6)
[2017-06-22 04:11] LABS: Phosphorus 0.8 mg/dL (2.5-4.9)
[2017-06-22] MEDS ORDERED: Potassium Phos (mEq) Inj 40 MEQ in Dextrose 5% 500 ML IV ONE (04:30)
--- NOTE | 2017-06-22 06:22 | NUR ---
CIWA Score Pt's last CIWA score was 12 and pt was given another 2mg of Ativan IVP. Pt is now sleeping. was notified of Critical Lab Value: Phosphorous 0.8 and ordered KPhos to be given via IV. KPhos is currently running.
[2017-06-22] MEDS: Pantoprazole 40 mg ER24 Tablet PO SCH ×2 (08:12→17:22)
[2017-06-22] MEDS: Multivit-Miner-Folic Acid-Iron Tablet PO SCH (08:30)
--- NOTE | 2017-06-22 09:09 | NUR ---
Social Work: Screen D: Per EMR review, pt is a 57 year old male admitted for alcoholic ketoacidosis, ETOH abuse. Pt is [employer] as primary payer. PCP is through the [facility]. NOK is Judi Coelho, Sister, . Advanced directives not completed. Readmit score not entered at this time time. Pt is currently on CIWA protocol for ETOH withdrawal. Pt has frequent admissions for ETOH use and mental health reasons. Pt scored 12-16 overnight on CIWA scale and is currently sleeping heavily. Per H&P, The patient also has a has a diagnosis of bipolar and a dissassociative disorder in which he reports auditory, visual and tactile hallucinations. The patient has a history of suicidal ideation and past attempts (hanging); pt has signed a safety contract. Pt states that at baseline he often thinks of killing himself (shooting himself) but does not have access to the means to do so. No CM orders to complete CD or MH assessment at this time. INTERIOR BLOCK WIRER will continue to follow to assess for needs. Pt's CD and MH will need to be assessed prior to discharge. A: Pt who lives in [place]. P: Evolving; INTERIOR BLOCK WIRER to continue to follow to assess for needs and to assess pt's CD and MH needs as ordered by physician. MAYELIN Reddy
[2017-06-22 09:59] LABS: Phosphorus 1.1 mg/dL (2.5-4.9)
[2017-06-22] MEDS: Famotidine Inj 20 MG in IV Premix 1 EACH IV SCH (10:29)
[2017-06-22] MEDS: Thiamine Inj 100 MG in 0.9% Sodium Chloride 100 ML IV SCH (10:39)
--- NOTE | 2017-06-22 11:05 | NUR ---
Called and left message at [place] to follow up on patient and his connection, asked for call back to discuss this . Updated OIL DRILLER Addendum: 06/22/17 at 1106 by RA DUNN This patient is 60% connected and holds no other insurance.
[2017-06-22] MEDS ORDERED: Lactulose 20 Gm/30 mL 30 mL Syrup PO ONE (11:55)
--- NOTE | 2017-06-22 16:25 | NUR ---
CIWA Score Patient CIWA score "0" so far during shift, O x 3, drowsy, showered independently, slow steady gait w/ fww, no nausea/tremors noted. No sedatives admin so far during shift. Continuing to monitor.
--- NOTE | 2017-06-22 17:16 | NUR ---
Social Work: Initial Assessment/Multidisciplinary Rounds D: Per EMR review, pt is a 57 year old male admitted for alcoholic ketoacidosis, ETOH Abuse. Pt is [employer] insurance (60%) with no other insurance, LTC or benefits. PCP is through the [facility]. NOK is Judi Coelho, sister, . Advanced directives not completed- information provided. No RA Score entered. Pt discussed in Multidisciplinary rounds. Capacity for self care discussed; no concerns as long as the patient does not drink. Patient needs a CD assessment for resources; providers are aware of pt's baseline mental health history and suicidal statements. CM order received. HOG CUTTER acknowledges order and has completed CD assessment. See separate note by this HOG CUTTER. HOG CUTTER met with the patient at bedside. Social work/dcp role explained, contact information and discharge planning checklist provided. See initial assessment. Pt lives in [place] in an apartment. pt is I at baseline with the use of a cane. Pt confirms that he does not drive uses the bus system for transportation. The patient denies any discharge needs including chemical dependency and mental health resources. Pt denies being actively suicidal and states that "I have no plan, I have no intent, but would I rather not in this world? yeah." Patient commits to keeping self safe and states he has no access to lethal means. See CD assessment for more information. A: Pt who is I at baseline. P: Anticipate pt to discharge home when medically stable; HOG CUTTER to continue to follow to assess for unmet d/c needs. MAYELIN Reddy Addendum: 06/22/17 at 1721 by DAVIAN MONTELONGO Amended: Links added.
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
[2017-06-22] MEDS: hydrOXYzine Pamoate 25 mg Capsule PO PRN (20:17)
[2017-06-23] VITALS (8 sets, daily range): BP systolic 105–121; BP diastolic 69–84; PULSE 71–101; RESP 14–19; O2SAT 97–99
--- NOTE | 2017-06-23 02:12 | NUR ---
Sats Placed on continuous pulse oximeter at HS due to possible sleep apnea. Sats dipped down to 80's intermittently. Placed on 2 liters nasal cannula while sleeping and sats 99%.
[2017-06-23 03:17] LABS: BASOPHILS % (AUTO) 0.4 % (0-3); EOSINOPHILS % (AUTO) 1.2 % (0-5); MONOCYTES % (AUTO) 11.3 % (4-12); Mean Corpuscular Hemoglobin 32.8 pg (27.0-35.0); Mean Corpuscular Volume 93.4 fL (81-100); Platelet Count 54 bil/L (150-400)
[2017-06-23 03:40] LABS: Phosphorus 0.7 mg/dL (2.5-4.9)
[2017-06-23] MEDS ORDERED: Potassium Phos (mEq) Inj 40 MEQ in Dextrose 5% 500 ML IV ONE ×2 (04:00→20:55)
[2017-06-23] MEDS ORDERED: Potassium Chloride 20 mEq SR Tablet PO ONE (04:20)
--- NOTE | 2017-06-23 04:50 | NUR ---
Potassium Phosphorus 0.7 and Potassium 2.8. orders received - pt took oral potassium crushed in applesauce per his request, and IV potassium is infusing.
[2017-06-23] MEDS: Thiamine Inj 100 MG in 0.9% Sodium Chloride 100 ML IV SCH (08:30)
[2017-06-23] MEDS: Pantoprazole 40 mg ER24 Tablet PO SCH ×2 (08:52→16:24)
[2017-06-23] MEDS: Multivit-Miner-Folic Acid-Iron Tablet PO SCH (08:53)
--- NOTE | 2017-06-23 17:16 | NUR ---
labs and CIWA Pt complete K-phos rider. Chemistry checked at 0900 today, infusion completed around 1500. CIWA today was 5 then 3 and 3. Pt states last drink was 5 days ago. Up moving with PT, SBA with FWW. will notify staff when he wants to walk. Addendum: 06/23/17 at 1738 by Katelynn Rodriguez RN Pt with low grade temp, 37.7. encouraged pt to DB&C. Notified MD, no change to plan of care.
--- NOTE | 2017-06-23 17:21 | NUR ---
spiritual care; pt request conversational visit. pt insightful about his situation and goals,. pleasant, explored recent stresses and hopes. Pt devoted to his 17 year old daughter and aware of supports/coping and dynamics of his addiction.
[2017-06-23] MEDS ORDERED: Lactulose 20 Gm/30 mL 30 mL Syrup PO ONE (18:20)
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
[2017-06-23 20:43] LABS: Phosphorus 0.8 mg/dL (2.5-4.9)
[2017-06-23] MEDS: hydrOXYzine Pamoate 25 mg Capsule PO PRN (23:51)
[2017-06-24 04:00] VITALS: BP 105/70; PULSE 87; RESP 20; O2SAT 98
--- NOTE | 2017-06-24 05:47 | NUR ---
phos/k pts phos back at 0.8 and potassium 3.2 called received order to give K/phos IV rider, hung take 8 hours to infuse, pts IV infiltrated so new IV started, heat pack and elevated applied to old site, pt then c/o of burning and had to slow IV down. will recheck morning labs post infusion. tele SR
--- NOTE | 2017-06-24 05:48 | NUR ---
BM pt up with 1pa and FWW to bathroom having 2 loose stools, lactulose given last night
[2017-06-24 07:27] VITALS: BP 118/80; PULSE 79; RESP 18; O2SAT 97
[2017-06-24] MEDS: Multivit-Miner-Folic Acid-Iron Tablet PO SCH (07:31)
[2017-06-24] MEDS: Pantoprazole 40 mg ER24 Tablet PO SCH ×2 (07:31→15:52)
[2017-06-24 07:53] LABS: BASOPHILS % (AUTO) 0.9 % (0-3); EOSINOPHILS % (AUTO) 1.4 % (0-5); MONOCYTES % (AUTO) 15.9 % (4-12); Mean Corpuscular Hemoglobin 32.9 pg (27.0-35.0); Mean Corpuscular Volume 94.1 fL (81-100); NEUTROPHILS % (AUTO) 48.6 % (40-74); Platelet Count 75 bil/L (150-400)
[2017-06-24 08:28] LABS: Phosphorus 2.2 mg/dL (2.5-4.9)
[2017-06-24 10:11] VITALS: PULSE 76
[2017-06-24] MEDS ORDERED: Potassium Chloride 20 mEq SR Tablet PO ONE (10:45)
[2017-06-24] MEDS: oxyCODONE-Acetamin 5-325 mg Tablet PO PRN ×2 (10:55→17:36)
[2017-06-24 10:58] VITALS: BP 104/71; PULSE 83; RESP 19; O2SAT 96
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
[2017-06-24 15:38] VITALS: BP 117/80; PULSE 84; RESP 18; O2SAT 98
[2017-06-24] MEDS ORDERED: Lactulose 20 Gm/30 mL 30 mL Syrup PO ONE (18:00)
[2017-06-24 20:36] VITALS: BP 102/62; RESP 19; O2SAT 96
[2017-06-24] MEDS: hydrOXYzine Pamoate 25 mg Capsule PO PRN (20:43)
--- NOTE | 2017-06-24 21:28 | NUR ---
Transfer: Report given to Daphne Gomez RN. P transported to [facility] room 3020 via wheelchair in stable condition with assist from nursing staff, all belongings with pt at this time.
[2017-06-24] MEDS: LORazepam 2 mg Tablet PO PRN (22:34)
[2017-06-25] MEDS: oxyCODONE-Acetamin 5-325 mg Tablet PO PRN ×3 (00:20→16:35)
--- NOTE | 2017-06-25 04:54 | NUR ---
Arrival to unit and Pain management Patient is alert and oriented x4, he arrived to the unit via wheelchair at 2125. Personal belongings with patient, He c/o right shoulder pain and feet pain. pain managed with current PRN meds. Patient denies any plans to harm self, he reports that he thinks "about dying every day constantly" but has no plan or intentions of harming himself. Pt reports he has system support technician outpatient who have been helping him with his constant "thinking of dying".Encouraged to report if at any point he feels the urge to harm himself. Indicates understanding. Patient said he had signed a contract that he was not going to harm himself. He was able to sleep on and off through the shift.
[2017-06-25 04:55] VITALS: BP 95/65; PULSE 82; RESP 18; O2SAT 92
[2017-06-25 06:42] LABS: BASOPHILS % (AUTO) 0.8 % (0-3); EOSINOPHILS % (AUTO) 2.8 % (0-5); MONOCYTES % (AUTO) 18.3 % (4-12); Mean Corpuscular Hemoglobin 33.2 pg (27.0-35.0); Mean Corpuscular Volume 96.7 fL (81-100); NEUTROPHILS % (AUTO) 36.3 % (40-74); Platelet Count 108 bil/L (150-400)
[2017-06-25 06:56] LABS: Phosphorus 2.6 mg/dL (2.5-4.9)
[2017-06-25] MEDS: Pantoprazole 40 mg ER24 Tablet PO SCH ×2 (07:42→16:34)
[2017-06-25] MEDS: Multivit-Miner-Folic Acid-Iron Tablet PO SCH (07:42)
[2017-06-25] MEDS: LORazepam 2 mg Tablet PO PRN (07:48)
[2017-06-25 08:24] VITALS: BP 106/69; PULSE 81; RESP 16; O2SAT 93
[2017-06-25 12:38] VITALS: BP 105/70; PULSE 83; O2SAT 99
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
[2017-06-25] MEDS ORDERED: Potassium Phosphate 500 mg Tablet PO ONE (14:10)
--- NOTE | 2017-06-25 15:25 | NUR ---
Social Work-continued d/c planning: Data& assessment.:EMR reviewed. Pt is on day 4 of hospitalization for etoh abuse per H&P. Pt is not medically stable anticipate several more days. PT has cleared pt for home with FWW. order received to arrange Fww, pt agreeable. [facility] and [facility] came and delivered fww to pt's room to take home. CD assessment has been completed and [facility]. Pt has been able to safety plan to return home. SW to check in with pt on day of discharge to confirm safety plan established on 06/22 with SW. SW will continue to follow. Plan:Pt to discharge home when medically stable via POV. Fww obtained and is in pt's room to take home with him. SW to check in with pt on day of discharge to confirm safety plan established on 06/22 with SW. SW will continue to follow. MAYELIN Wright
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
[2017-06-25 21:16] VITALS: BP 123/87; PULSE 84; RESP 18; O2SAT 97
[2017-06-26] MEDS: oxyCODONE-Acetamin 5-325 mg Tablet PO PRN ×2 (00:37→07:54)
[2017-06-26 05:47] VITALS: BP 123/85; PULSE 81; RESP 18; O2SAT 98
[2017-06-26] MEDS: Multivit-Miner-Folic Acid-Iron Tablet PO SCH (07:51)
[2017-06-26] MEDS: Pantoprazole 40 mg ER24 Tablet PO SCH (07:52)
[2017-06-26] MEDS: hydrOXYzine Pamoate 25 mg Capsule PO PRN (07:53)
[2017-06-26] MEDS: LORazepam 2 mg Tablet PO PRN ×2 (07:58→12:02)
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
--- NOTE | 2017-06-26 10:51 | PCM.DIMED ---
Discharge Instructions Date of Service Jun 26, 2017 Dates of Hospitalization Jun 21, 2017 at 15:38 Discharge Diagnosis Discharge Diagnosis Acute alcoholic ketoacidosis Acute alcohol withdrawal, Electrolyte Abnormalities, hypokalemia and hypophosphotemia Acute hyponatremia, Possible acute hematemesis Likely chronic alcoholic hepatitis, chronic, active Chronic hypertension Chronic posttraumatic stress disorder with severe anxiety Medication Instructions Additional med instructions - Continue home blood pressure medications. Diet Discharge Diet: Heart Healthy Activity Discharge Activity: Outpatient Physical Therapy, Other (- Use the Front Wheel Walker to move to avoid falls. Continue your outpatient Physical Therapy. ) Patient Instructions Patient Instructions - Continue avoiding further alcohol use. Refer to resources provided by [employer]. Encourage resuming Alcoholics Anonymous program. - If having thought of harming self or others please call 04/05 veterans crisis line and return to the Emergency Department. Follow-up plan - Repeat labs in 1-2 weeks when follow up with Primary doctor. Follow-up Provider: Ottoniel De La Fuente MD Follow-up with PCP in: 1 week Cesar Quiros MD Jun 26, 2017 10:51
--- NOTE | 2017-06-26 12:29 | NUR ---
Discharge D/C to home with PT. D/C packet discussed and provided with care notes and f/u info. Pt comfortable with plan of care. Escorted off floor via w/c and SOCIAL WORK CASE MANAGER with new personal FWW.
--- NOTE | 2017-06-26 12:57 | NUR ---
Social Work D/C planning: D&A: Received notification in AM rounds that pt. will be medically cleared to discharge today. ASSEMBLER [employer]ODUCT met briefly with pt. to confirm discharge plan. Pt. alert and oriented at time of visit. Pt. reports that he is going home today and will be calling a cab for transport. Pt. recently moved into 1 bedroom apartment building that caters to low-income Vets ([facility]). Pt. plans to f/u with primary care at [facility] in [facility] and denies any needs. Pt. reports that he has been sober x1wk. Pt. has AA sponsor and is actively involved with [employer] meetings. P: Home today. FWW provided for home use. MAYELIN Kan
== END 2017-06-26 12:11 | disposition home or self-care (01) | DRG 641 ==
LOC: SED 11:57 → EDBD 11:57 → EDUNIT# 11:57 → PCC 15:38 → MPC 06-24 21:30
PROVIDERS: ADMIT Neuromusculoskeletal Medicine & OMM; ATTEND Internal Medicine
PROC: 4A033R1 Measurement of Arterial Saturation, Peripheral, Percutaneous Approach (ICD-10-PCS; principal; 2017-06-21)
DX: E87.2 Acidosis (principal); F10.239 Alcohol dependence with withdrawal, unspecified; K92.0 Hematemesis; R45.851 Suicidal ideations; Z87.891 Personal history of nicotine dependence; E87.1 Hypo-osmolality and hyponatremia; K70.10 Alcoholic hepatitis without ascites; I10 Essential (primary) hypertension; F43.12 Post-traumatic stress disorder, chronic; Z51.5 Encounter for palliative care; E83.30 Disorder of phosphorus metabolism, unspecified

== ENCOUNTER 2017-07-06 22:28 | Emergency (ER) | payer OTHER ==
[~2017-07-06] VITALS: Ht 172.7 cm; Wt 102.3 kg
[~2017-07-06 22:28] MED LIST changes: -IBUP400T22 PO; -POTA20TA16 PO
[2017-07-06 22:33] VITALS: BP 149/98; PULSE 97; RESP 16; O2SAT 93
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
[2017-07-07 02:32] VITALS: BP 138/88; PULSE 92; RESP 16; O2SAT 94
--- NOTE | 2017-07-07 08:24 | DRSVH ---
PROCEDURE: X-RAY RIGHT CLAVICLE, COMPLETE ([id number]) INDICATIONS: fall TECHNIQUE: 2 views of the clavicle were acquired. COMPARISON: None. FINDINGS: Bones: No fractures or dislocations. No suspicious bony lesions. Soft tissues: No suspicious soft tissue calcifications. IMPRESSION: Moderate a.c. joint osteoarthritis, no fracture found. Dictated by: Macho Rocha M.D. on 07/07/2017 at 8:22 Approved by: Macho Rocha M.D. on 07/07/2017 at 8:22
== END 2017-07-07 02:38 | disposition home or self-care (01) ==
LOC: SED 22:28
DX: F10.120 Alcohol abuse with intoxication, uncomplicated (principal); S20.219A Contusion of unspecified front wall of thorax, initial encounter; W18.39XA Other fall on same level, initial encounter; Y93.89 Activity, other specified; Y92.9 Unspecified place or not applicable; Y99.8 Other external cause status; I10 Essential (primary) hypertension; F43.10 Post-traumatic stress disorder, unspecified; Z87.891 Personal history of nicotine dependence; Z88.0 Allergy status to penicillin

== ENCOUNTER 2017-07-08 05:16 | Emergency (ER) | payer OTHER ==
[~2017-07-08] VITALS: Ht 172.7 cm; Wt 102.3 kg
[2017-07-08 05:20] VITALS: BP 150/95; PULSE 82; RESP 20; O2SAT 93
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
== END 2017-07-08 06:05 | disposition home or self-care (01) ==
LOC: SED 05:16 → EDBD 05:16 → EDUNIT# 05:16 → SED 06:05
DX: S43.101D Unspecified dislocation of right acromioclavicular joint, subsequent encounter (principal); W18.39XD Other fall on same level, subsequent encounter; Y93.89 Activity, other specified; Y92.89 Other specified places as the place of occurrence of the external cause; Y99.8 Other external cause status; F10.120 Alcohol abuse with intoxication, uncomplicated; I10 Essential (primary) hypertension; F41.8 Other specified anxiety disorders; F31.9 Bipolar disorder, unspecified; Z96.643 Presence of artificial hip joint, bilateral; Z98.890 Other specified postprocedural states; Z87.891 Personal history of nicotine dependence; Z88.1 Allergy status to other antibiotic agents